=== PATIENT | female | born 1985 | race Caucasian/White ===

== ENCOUNTER 2017-01-10 17:02 | Emergency (ER) | payer BC ==
[~2017-01-10] VITALS: Ht 172.7 cm; Wt 63.5 kg
[2017-01-10] MEDS ORDERED: PROM118S2 PO (17:43)
[2017-01-10] MEDS ORDERED: SULF1TAB24 PO (17:43)
--- NOTE | 2017-01-10 17:46 | PHYS DOC ---
General Chief Complaint: FACE PROBLEM Stated Complaint: FACE PROBLEM Time Seen by MD: 17:07 Source: patient Exam Limitations: no limitations Problems: History of Present Illness Initial Comments Patient is a 31-year-old female who comes to the ED complaining of sinus infection. Patient states that she was treated last week with a Z-Juan M for upper respiratory infection but has not improved. She states that she's had facial pain and pressure worse with forward bending, productive cough with yellow discharge as well as yellow nasal drainage. She states that last night she had multiple episodes of posttussive emesis. She's had no fevers but states she's had body aches and chills, denies chest pain or shortness of breath no abdominal pain or bowel or bladder symptoms. Z-Juan M and nkmv-one-acwwxin medications are not helping, she states she just got off work and struggled to get through it. Her ED vital signs are stable Timing/Duration: last week Severity: moderate Location: nose, throat, facial Prearrival Treatment: over the counter meds, prescription meds Modifying Factors: worse with coughing, improves with rest Associated Symptoms: cough, facial pain/swelling, malaise, nasal congestion/ drainage, sinus infection, sore throat Allergies: Coded Allergies: No Known Drug Allergies (Unverified , 01/10/17) Past Medical History Medical History: no pertinent history Surgical History: noncontributory Social History Smoker: non-smoker Alcohol: none Drugs: none Constitutional: chills, diaphoresis, denies fever, malaise Eyes: denies blindness, denies blurred vision, denies drainage Ears: denies dizziness, denies tinnitus, denies clear discharge Nose: denies clots, congestion, denies epistaxis, denies pain Throat: pain, denies swelling, denies neck stiffness, denies painful swallowing , denies difficulty with fluids Respiratory: cough, denies orthopnea, denies shortness of breath, denies stridor, denies wheezing Cardiovascular: denies chest pain, denies palpitations, denies syncope Gastrointestinal: denies abdominal pain, denies constipation, denies diarrhea, denies nausea, vomiting Musculoskeletal: see HPI Neurological: headache, denies numbness, denies paresthesia, denies weakness Hematologic/Lymphatic: denies blood clots, denies easy bleeding, denies easy bruising Physical Exam General Appearance: WD/WN, mild distress Eyes: bilateral eye normal inspection, bilateral eye PERRL, bilateral eye EOMI Ears: bilateral ear auricle normal Nose: sinus tenderness, other (yellow discharge) Mouth/Throat: other (yellow postnasal drip no pharyngeal swelling or exudate or vesicles airway is patent) Neck: full range of motion, supple, trachea midline Cardiovascular/Respiratory: normal peripheral pulses, normal breath sounds, no respiratory distress 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 Departure Time of Disposition: 17:44 Disposition: 01 HOME, SELF-CARE Diagnosis: Sinusitis, post-tussive emesis Condition: GOOD Patient Instructions: Sinusitis, [id number]-[id number] Additional Instructions: Off work thru Monday, note given. OTC tylenol/ibuprofen/diphenhydramine as needed. Aggressive hydration with gatorade, water. Rx: bactrim ds, promethazine/codeine syrup 120ml Follow up with your doctor in 7-10 days if no improvement. Return to ED with new or changing symptoms. THIAGO ARCE DO Jan 10, 2017 17:46
[2017-01-10 17:50] VITALS: BP 123/82
== END 2017-01-10 17:55 | disposition home or self-care (01) ==
LOC: ER 17:02
DX: J32.9 Chronic sinusitis, unspecified (principal); R11.10 Vomiting, unspecified
CPT/HCPCS: 99283

== ENCOUNTER 2020-07-01 22:39 | Emergency (ER) | payer BC, OTHER ==
[~2020-07-01] VITALS: Ht 167.6 cm; Wt 72.7 kg
[~2020-07-01 22:39] MED LIST: PROM118S5 PO; SULF1TAB24 PO
[2020-07-01 23:07] VITALS: BP 148/91
[2020-07-01] MEDS ORDERED: ORPH-16 PO (23:24)
--- NOTE | 2020-07-01 23:24 | PHYS DOC ---
Past History Past Medical History: No Pertinent History Past Surgical History: , Tonsillectomy, Other Additional Past Surgical Histo: hernia repair Alcohol Use: None Drug Use: None General Adult EDM: Chief Complaint: BACK INJURY HPI: HPI: Patient is a [age] year old [sex] who presents with [] Review of Systems: Review of Systems: Constitutional: Denies fever or chills Eyes: Denies redness or eye pain HENT: Denies nasal congestion or sore throat Respiratory: Denies cough or shortness of breath Cardiovascular: Denies chest pain or palpitations GI: Denies abdominal pain, nausea, or vomiting : Denies dysuria or hematuria Musculoskeletal: Reports back pain; denies neck pain Integument: Denies rash or skin lesions Neurologic: Denies headache, focal weakness or sensory changes; denies loss of bowel or bladder Complete systems were reviewed and found to be within normal limits, except as documented in this note. Allergies: Allergies: Allergies Coded Allergies Type Severity Reaction Last Updated Verified No Known Drug Allergies 01/10/17 No Physical Exam: PE: Constitutional: Well developed, well nourished, uncomfortable, non-toxic appearance HENT: Normocephalic, atraumatic Eyes: Conjunctiva normal, no discharge Neck: Normal range of motion, supple Lungs & Thorax: No respiratory distress, equal chest rise and fall Skin: Warm, dry, no erythema, no rash Back: No midline tenderness, bilateral upper lumbar paraspinal tenderness on palpation as well as upper thoracic paraspinal tenderness no CVA tenderness Extremities: No tenderness, ROM intact, no edema Neurologic: Alert and oriented X 3, no focal deficits noted Psychologic: Affect normal, judgment normal EKG: EKG: [] Radiology/Procedures: Radiology/Procedures: [] Heart Score: C/O Chest Pain: N/A Course & Med Decision Making: Course & Med Decision Making Patient with history of chronic back issues ("3 herniated disks ") presents with HPI and physical exam concerning for possible exacerbation of patient's chronic back issues. Denies loss of bowel or bladder. Denies fall. No midline spinal tenderness appreciated. Symptomatic treatment provided. Patient stable for discharge with outpatient follow-up with PCP/Workmen's Comp. Discussed findings and plan with patient and friend, who acknowledge understanding and agreement. Zev Disclaimer: Zev Disclaimer: This electronic medical record was generated, in whole or in part, using a voice recognition dictation system. Departure Departure: Impression: Primary Impression: Back pain Qualified Codes: M54.9 - Dorsalgia, unspecified Disposition: 01 DC HOME SELF CARE/HOMELESS Condition: STABLE Referrals: PCP,NO (PCP) Patient Instructions: Back Pain, Adult, Qjvw-oo-Bpid, Work-Related Injury-Brief Additional Instructions: Ice to area of discomfort 20 minutes on then leave off for the next 20 minutes. Repeat several times daily for the next few days. May introduce heat after 72 hours. Take yzvj-uso-mgweobh ibuprofen and/or Tylenol for pain or discomfort. Follow-up closely with Workmen's Comp. for further evaluation and treatment. Scripts Orphenadrine Citrate (ORPHENADRINE CITRATE) 100 Mg Tablet.er 1 TAB PO BID PRN for MUSCLE PAIN, #14 TAB 0 Refills Prov: CRISTY BLACKMAN DO 07/01/20 CRISTY BLACKMAN DO Jul 01, 2020 23:24
[2020-07-01] MEDS ORDERED: ORPHENADRINE CITRATE 60 MG/2 ML VIAL. IM ONE (23:45)
[2020-07-01] MEDS ORDERED: IBUPROFEN 600 MG TABLET. PO ONE (23:45)
[2020-07-01] MEDS ORDERED: DEXAMETHASONE 4 MG TABLET PO ONE (23:45)
[2020-07-02] MEDS ORDERED: ONDANSETRON ODT 4 MG TAB.RAPDIS PO ONE
== END 2020-07-01 23:49 | disposition home or self-care (01) ==
LOC: ER 22:39
DX: M54.6 Pain in thoracic spine (principal); M54.5 Low back pain; Z98.890 Other specified postprocedural states
CPT/HCPCS: 96372; 99284; J2360; J8540; Q0162

== ENCOUNTER 2020-10-03 14:00 | Emergency (ER) | payer SELFPAY ==
[~2020-10-03] VITALS: Ht 170.2 cm; Wt 77.3 kg
[~2020-10-03 14:00] MED LIST changes: +ORPH-16 PO
[2020-10-03] MEDS: HYDROcodone/APAP 7.5/325MG 1 TAB TABLET PO ONE (14:30)
--- NOTE | 2020-10-03 14:32 | PHYS DOC ---
Past History Past Medical History: No Pertinent History Past Surgical History: , Tonsillectomy, Other Additional Past Surgical Histo: hernia repair Smoking: Non-smoker Alcohol Use: None Drug Use: None Adult General Chief Complaint Chief Complaint: MECHANICAL FALL HPI HPI Patient is a 35-year-old female who presents via POV with daughter after falling off a horse. Accident occurred approximately 2 hours prior to arrival. States she was on a horse with her child when the horse got spooked and bucked them off. Patient reports falling off landing on outstretched hands and subsequently landing on her right hip. Did not hit her head, no loss of consciousness, no changes in motor or sensory or neurologic control, no saddle anesthesia or bladder or bowel incontinence. Patient reports family member drove in picked her up. She was able to self ambulate but was extremely antalgic getting out of car into the house. She attempted to go about her day taking x1 dose of Tylenol without significant pain relief. She reports trying to shower but ongoing pain especially with weightbearing to right hip prompted her to request transport to our ER for evaluation. Patient is otherwise healthy, no medical issues, no alcohol or illicit drug use Review of Systems Review of Systems Fourteen body systems of review of systems have been reviewed. See HPI for pertinent positives and negative responses, other workman all other systems are negative, non-pertinent or non-contributory Allergies Allergies Allergies Coded Allergies Type Severity Reaction Last Updated Verified No Known Drug Allergies 07/01/20 No Physical Exam Physical Exam TRAUMA ADULT: A: Patient vocalizing, airway intact B: Bilateral breath sounds present C: 2+ carotid, radial and femoral pulses intact bilaterally D: GCS 15 (E4, V5, M6). MAEE E: Patient exposed with no significant trauma and/or obvious bony abnormalities/deformities General: Age-appropriate but appears in moderate distress due to pain wiggling in ER cot Skin: Warm, dry. Normal for ethnicity. HEENT: Atraumatic. PERRLA. Dry mucous membranes. No facial deformity. Neck: Trachea midline. Full range of motion of neck. No midline c-spine TTP. Respiratory: Normal WOB. CTAB w/o w/r/r. No tachypnea. Cardiovascular: Regular rate and rhythm. Normal peripheral perfusion. No edema. Chest: B/l clavicles intact. No TTP. No ecchymosis. No bruising. No deformity. Abdomen: Soft. Non tender. No distension. Bowel sounds present : Deferred Back: No midline T or L-spine TTP. No ecchymosis. Musculoskeletal: Tenderness present to dorsal aspect of left hyperthenar eminence and tenderness with palpation to distal aspect of right radius. Pelvis is stable but exquisitely tender to palpation on the right on anterior and lateral portions of hip. Cap refill less than 3 seconds in all distal extremities Neuro: Alert and oriented x 4. MAEE. Motor and sensory function intact. No saddle anesthesia. Cranial nerves II through XII intact Psych: Anxious affect and mood Current Patient Data Vital Signs Vital Signs Date Time Temp Pulse Resp B/P (MAP) Pulse Ox O2 Delivery O2 Flow Rate FiO2 10/03/20 15:28 98.1 69 24 132/88 100 Vital Signs Date Time Temp Pulse Resp B/P (MAP) Pulse Ox O2 Delivery O2 Flow Rate FiO2 10/03/20 15:28 98.1 69 24 132/88 100 Lab Results Laboratory Tests Test 10/03/20 15:57 White Blood Count 7.0 x10^3/uL Red Blood Count 4.26 x10^6/uL Hemoglobin 12.8 g/dL Hematocrit 37.8 % Mean Corpuscular Volume 89 fL Mean Corpuscular Hemoglobin 30 pg Mean Corpuscular Hemoglobin Concent 34 g/dL Red Cell Distribution Width 12.9 % Platelet Count 147 x10^3/uL Neutrophils (%) (Auto) 81 % Lymphocytes (%) (Auto) 12 % Monocytes (%) (Auto) 7 % Eosinophils (%) (Auto) 0 % Basophils (%) (Auto) 0 % Neutrophils # (Auto) 5.6 x10^3uL Lymphocytes # (Auto) 0.9 x10^3/uL Monocytes # (Auto) 0.5 x10^3/uL Eosinophils # (Auto) 0.0 x10^3/uL Basophils # (Auto) 0.0 x10^3/uL Sodium Level 143 mmol/L Potassium Level 3.4 mmol/L Chloride Level 106 mmol/L Carbon Dioxide Level 26 mmol/L Anion Gap 11 Blood Urea Nitrogen 15 mg/dL Creatinine 1.1 mg/dL Estimated GFR (Cockcroft-Gault) 56.9 BUN/Creatinine Ratio 14 Glucose Level 93 mg/dL Calcium Level 8.6 mg/dL Total Bilirubin 0.4 mg/dL Aspartate Amino Transf (AST/SGOT) 23 U/L Alanine Aminotransferase (ALT/SGPT) 21 U/L Alkaline Phosphatase 70 U/L Total Protein 7.7 g/dL Albumin 4.1 g/dL Albumin/Globulin Ratio 1.1 Current Medications Medications (Trade) Dose Ordered Sig/Donna Route PRN Reason Start Time Stop Time Status Last Admin Dose Admin Acetaminophen/ Hydrocodone Bitart (Lortab 7.5/325) 1 tab 1X ONCE PO 10/03/20 14:30 10/03/20 14:39 DC 10/03/20 14:30 Fentanyl Citrate (Fentanyl 2ml Vial) 75 mcg 1X ONCE IVP 10/03/20 15:45 10/03/20 15:46 DC 10/03/20 15:59 Iohexol (Omnipaque 300 Mg/ml) 75 ml 1X ONCE IV 10/03/20 15:45 10/03/20 15:46 DC 10/03/20 16:31 EKG EKG [] Radiology/Procedures Radiology/Procedures XR HAND_LEFT 3 VIEWS History: Reason: LEFT THUMB PAIN, FOOSH / Spl. Instructions: / History: Technique: 3 views left hand Comparison: None. Findings: No dislocation. No acute fracture. Shortened fourth and fifth metacarpals. Impression: 1. No acute osseous abnormality. 2. Shortened fourth and fifth metacarpals. Differential considerations include metabolic and congenital etiologies. Electronically signed by: Monico Goldstein DO (10/03/2020 3:12 PM) [facility] ////////////////// XR RT WRIST 3VIEWS History: Reason: RT SNUFFBOX PAIN / Spl. Instructions: / History: Technique: 3 views right wrist Comparison: None. Findings: Acute nondisplaced intra-articular distal radial fracture. No dislocation. There is adjacent soft tissue swelling. Impression: 1. Acute nondisplaced right intra-articular distal radius fracture. Electronically signed by: Monico Goldstein DO (10/03/2020 3:14 PM) [facility] ////////////// XR BILATERAL HIP (WITH OR WITHOUT PELVIS) 2 VIEWS_RIGHT History: Reason: FALL OFF HORSE, RIGHT HIP PAIN / Spl. Instructions: / History: Technique: AP view of the pelvis and additional views of the right hip. Comparison: None. Findings: Acute mildly displaced superior and inferior pubic rami fractures. No dislocation of the hips. Possible nondisplaced right sacral alar fracture although not well characterized on the current examination. Impression: 1. Acute mildly displaced right superior and inferior pubic ramus fractures. 2. Possible nondisplaced right sacral alar fracture. Electronically signed by: Monico Goldstein DO (10/03/2020 3:18 PM) [facility] ///////////// Single view chest dated 10/03/2020 3:58 PM: COMPARISON: None Clinical Indication: Pain after fall. Findings: Single upright portable exam of the chest was performed. Heart size and mediast inal contours are within normal limits. Lungs are clear. No consolidation or pleural effusion. No pneumothorax. IMPRESSION: No acute radiographic abnormality. Electronically signed by: Satish Lim MD (10/03/2020 3:59 PM) [id number] /////////////// CT abdomen pelvis with contrast. HISTORY: Right pelvic fractures. CT abdomen pelvis was done using 74 mL of Omnipaque 300 contrast. There is mild atelectasis in the lung bases without other infiltrates. Liver is normal in appearance. There is no calcified gallstone. Spleen is unremarkable. Pancreas and adrenal glands are unremarkable. There is no mass or hydronephrosis in the kidneys. There is scarring and decreased size of the right kidney compared to the left side. There is no small bowel obstruction. Appendix is normal. Ovaries are unremarkable. There is central mass or endometrial thickening in the uterus. Bladder is almost empty but otherwise unremarkable. There is no significant pelvic hematoma or free fluid in the pelvis. There is buckling of the sacral ala on the right side consistent with a nondisplaced sacral fracture. There are superior and inferior right pubic rami fractures. IMPRESSION: 1. Endometrial thickening versus central mass in the uterus. 2. Superior and inferior pubic rami fractures right. 3. Nondisplaced fracture right sacral ala. 4. No acute intra-abdominal injury noted. 5. Scarring and decreased size of the right kidney compared to the left side. Electronically signed by: Chad Trivedi MD (10/03/2020 4:51 PM) [facility] Heart Score C/O Chest Pain: No Risk Factors: Risk Factors: DM, Current or recent (<one month) smoker, HTN, HLP, family history of CAD, obesity. Risk Scores: Risk Factors: DM, Current or recent (<one month) smoker, HTN, HLP, family history of CAD, obesity. Course & Med Decision Making Course & Med Decision Making ABCs unremarkable. I disclosed entirety of ER findings and discussed most likely diagnosis of nondisplaced right radial fracture, x2 right sided nondisplaced pubic rami fractures and nondisplaced right sacral ala fracture. I contacted orthopedic services at [facility], no indication for any emergent or surgical intervention. With that said, there is concern about patient's ability to be discharged home and care for family and self given current condition. I recommended patient be transferred to [facility] for pain control and further inpatient evaluation by orthopedic services and most importantly physical therapy to help assist with current deficits prior to departure home. Patient deferred. at bedside, states they want to try going home and taking care of self there and attempt to avoid hospital admission. I recommended against this but they were adamant about going home. As such, strict return precautions were discussed. I provided patient with crutches and information on where she can get a wheelchair and other DME equipment in the area Dragon Disclaimer Dragon Disclaimer This electronic medical record was generated, in whole or in part, using a voice recognition dictation system. Departure Departure: Impression: Primary Impression: Closed right radial fracture Additional Impression: Closed fracture of pubic ramus Disposition: 01 HOME / SELF CARE / HOMELESS Condition: STABLE Referrals: PCP,NO (PCP) Patient Instructions: Pelvic Fracture, Simple, Adult, Radius Fracture with Rehab-Sports[facility] Additional Instructions: As discussed prior to ER departure, your vital signs, physical exam and comprehensive ER work-up was nonconcerning for any emergent or surgical issues. With that said, pain control and mobility on discharge home were primary areas of concern. I recommended you be transferred for hospital admission and physical therapy evaluation given your injuries and inability to utilize crutches properly due to distal radial fracture of right wrist. Nonetheless, you wanted to go home. This is okay because your injuries were nonoperative and stable in nature. With that said, continued pain control, weightbearing as tolerated, and close outpatient follow-up is paramount. I have attached information regarding local primary care physicians in addition to orthopedic surgeon that I consulted regarding your injuries today. You should call them next scheduled business day to review ER visit and need for close outpatient follow-up for repeat evaluation. If any concerning signs or symptoms present prior to outpatient follow-up please do not hesitate to come back for repeat evaluation. It was a pleasure to take care of you and I wish you the best going forward Scripts Oxycodone HCl/Acetaminophen (Percocet 5-325 mg Tablet) 1 Each Tablet 1 TAB PO PRN TID PRN for SEVERE PAIN 7-10 MDD 3 Tablet(s) for 5 Days, #15 TAB 0 Refills Prov: SOPHIE MORGAN DO 10/03/20 Problem Qualifiers SOPHIE MORGAN DO Oct 03, 2020 14:32
--- NOTE | 2020-10-03 15:14 | RAD ---
XR HAND_LEFT 3 VIEWS History: Reason: LEFT THUMB PAIN, FOOSH / Spl. Instructions: / History: Technique: 3 views left hand Comparison: None. Findings: No dislocation. No acute fracture. Shortened fourth and fifth metacarpals. Impression: 1. No acute osseous abnormality. 2. Shortened fourth and fifth metacarpals. Differential considerations include metabolic and congeni aditi etiologies. Electronically signed by: Monico Goldstein DO (10/03/2020 3:12 PM) [facility]
--- NOTE | 2020-10-03 15:16 | RAD ---
XR RT WRIST 3VIEWS History: Reason: RT SNUFFBOX PAIN / Spl. Instructions: / History: Technique: 3 views right wrist Comparison: None. Findings: Acute nondisplaced intra-articular distal radial fracture. No dislocation. There is adjacent soft tis jose swelling. Impression: 1. Acute nondisplaced right intra-articular distal radius fracture. Electronically signed by: Monico Goldstein DO (10/03/2020 3:14 PM) [facility]
--- NOTE | 2020-10-03 15:20 | RAD ---
XR BILATERAL HIP (WITH OR WITHOUT PELVIS) 2 VIEWS_RIGHT History: Reason: FALL OFF HORSE, RIGHT HIP PAIN / Spl. Instructions: / History: Technique: AP view of the pelvis and additional views of the right hip. Comparison: None. Findings: Acute mildly displaced superior and inferior pubic rami fractures. No dislocation of the hips. Possib le nondisplaced right sacral alar fracture although not well characterized on the current examination . Impression: 1. Acute mildly displaced right superior and inferior pubic ramus fractures. 2. Possible nondisplaced right sacral alar fracture. Electronically signed by: Monico Goldstein DO (10/03/2020 3:18 PM) [facility]
[2020-10-03 15:28] VITALS: BP 132/88
--- NOTE | 2020-10-03 16:01 | RAD ---
Single view chest dated 10/03/2020 3:58 PM: COMPARISON: None Clinical Indication: Pain after fall. Findings: Single upright portable exam of the chest was performed. Heart size and mediastinal contours are with in normal limits. Lungs are clear. No consolidation or pleural effusion. No pneumothorax. IMPRESSION: No acute radiographic abnormality. Electronically signed by: Satish Lim MD (10/03/2020 3:59 PM) [id number]
[2020-10-03 16:19] LABS: BASO % 0 % (0-3); EOS % 0 % (0-3); HEMATOCRIT 37.8 % (36.0-47.0); HEMOGLOBIN 12.8 g/dL (12.0-15.5); LYMPH # 0.9 x10^3/uL (1.0-4.8); LYMPH % 12 % (24-48); MEAN CORPUSCULAR HEMOGLOBIN 30 pg (25-35); MEAN CORPUSCULAR HGB CONC 34 g/dL (31-37); MEAN CORPUSCULAR VOLUME 89 fL (79-100); MONO # 0.5 x10^3/uL (0.0-1.1); MONO % 7 % (0-9); NEUT # 5.6 x10^3uL (1.8-7.7); NEUT % 81 % (31-73); PLATELET COUNT 147 x10^3/uL (140-400); RED BLOOD COUNT 4.26 x10^6/uL (3.50-5.40); RED CELL DISTRIBUTION WIDTH 12.9 % (11.5-14.5)
[2020-10-03] MEDS: IOHEXOL 300 MG/ML 75 ML VIAL. IV ONE (16:31)
[2020-10-03 16:33] LABS: CALCIUM 8.6 mg/dL (8.5-10.1); CREATININE 1.1 mg/dL (0.6-1.0); GFR 56.9; POTASSIUM 3.4 mmol/L (3.5-5.1)
[2020-10-03 16:39] LABS: ALBUMIN 4.1 g/dL (3.4-5.0); ALBUMIN/GLOBULIN RATIO 1.1 (1.0-1.7); TOTAL BILIRUBIN 0.4 mg/dL (0.2-1.0); TOTAL PROTEIN 7.7 g/dL (6.4-8.2)
--- NOTE | 2020-10-03 16:54 | RAD ---
CT abdomen pelvis with contrast. HISTORY: Right pelvic fractures. CT abdomen pelvis was done using 74 mL of Omnipaque 300 contrast. There is mild atelectasis in the allie ng bases without other infiltrates. Liver is normal in appearance. There is no calcified gallstone. S pleen is unremarkable. Pancreas and adrenal glands are unremarkable. There is no mass or hydronephros is in the kidneys. There is scarring and decreased size of the right kidney compared to the left side . There is no small bowel obstruction. Appendix is normal. Ovaries are unremarkable. There is central mass or endometrial thickening in the uterus. Bladder is almost empty but otherwise unremarkable. Th ere is no significant pelvic hematoma or free fluid in the pelvis. There is buckling of the sacral al a on the right side consistent with a nondisplaced sacral fracture. There are superior and inferior r ight pubic rami fractures. IMPRESSION: 1. Endometrial thickening versus central mass in the uterus. 2. Superior and inferior pubic rami fractures right. 3. Nondisplaced fracture right sacral ala. 4. No acute intra-abdominal injury noted. 5. Scarring and decreased size of the right kidney compared to the left side. PQRS Compliance Statement: One or more of the following individualized dose reduction techniques were utilized for this examinat ion: 1. Automated exposure control 2. Adjustment of the mA and/or kV according to patient size 3. Use of iterative reconstruction technique Electronically signed by: Chad Trivedi MD (10/03/2020 4:51 PM) [facility]
[2020-10-03] MEDS ORDERED: OXYC-325 PO (17:30)
== END 2020-10-03 17:54 | disposition home or self-care (01) ==
LOC: ER 14:00
DX: S52.571A Other intraarticular fracture of lower end of right radius, initial encounter for closed fracture (principal); S32.501A Unspecified fracture of right pubis, initial encounter for closed fracture; W18.09XA Striking against other object with subsequent fall, initial encounter; Y93.89 Activity, other specified; Y92.89 Other specified places as the place of occurrence of the external cause; Y99.8 Other external cause status
CPT/HCPCS: 36415; 71045; 73110; 73130; 73502; 74177; 80053; 85025; 96374; 99285; J3010; Q9967

== ENCOUNTER → 2020-11-27 | Outpatient (CLI) | payer OTHER ==
[~2020-11-27] MED LIST changes: +OXYC-325 PO
--- NOTE | 2020-11-27 08:39 | RAD ---
EXAM: Pelvic sonogram. HISTORY: Enlarged uterus. TECHNIQUE: Sonographic imaging of the pelvis was performed. COMPARISON: CT dated 10/03/2020. FINDINGS: The uterus measures 11.8 x 6.6 x 4.8 cm. The endometrial stripe measures 6 mm in thickness. The uterus is heterogeneous and contains a 3.8 cm fibroid within the posterior uterine fundus. The o varies are normal in size and demonstrate normal blood flow. There are small ovarian antral follicles . There is no pelvic free fluid. IMPRESSION: 1. Mildly enlarged and diffusely heterogeneous uterus containing a 3.8 cm fibroid. 2. Otherwise, unremarkable pelvic sonogram. Electronically signed by: Karin Lange MD (11/27/2020 8:36 AM) [id number]
--- NOTE | 2020-11-27 08:40 | RAD ---
EXAM: Gannon scale and color Doppler renal artery sonogram. HISTORY: Renal renal atrophy. TECHNIQUE: Gannon scale and color Doppler sonographic imaging of the kidneys and renal arteries with sp ectral analysis was performed. COMPARISON: CT dated 10/03/2020. FINDINGS: The right kidney measures 8.7 cm hadp-sp-gyqh on the left kidney measures 10.5 cm pole-to-p ole. No solid or cystic renal lesion is seen. There is no hydronephrosis. The prevoid bladder volume is 165 cc. The ureteral jets are both seen. There are normal peak systolic velocities within the bila teral renal arteries and normal renal artery territory velocity ratios. The renal veins and inferior vena cava are patent. There is a normal peak systolic velocity within the abdominal aorta. IMPRESSION: 1. Right renal atrophy. 2. No Doppler evidence of greater than 60 percent stenosis involving the renal arteries. Electronically signed by: Karin Lange MD (11/27/2020 8:37 AM) [id number]
== END ==
LOC: US 07:54
PROVIDERS: ATTEND Family Medicine
DX: N85.2 Hypertrophy of uterus (principal); N26.1 Atrophy of kidney (terminal); R07.89 Other chest pain
CPT/HCPCS: 76770; 76856

== ENCOUNTER → 2020-12-11 | Outpatient (CLI) | payer OTHER ==
--- NOTE | 2020-12-11 18:16 | RAD ---
EXAM: XR RT WRIST 3VIEWS, XR PELVIS 1-2V 12/11/2020 11:24 AM CLINICAL INDICATION: Pelvic fracture follow-up. Right wrist fracture follow-up. COMPARISON: Right hip radiograph and right wrist radiograph 11/12/2020 TECHNIQUE: AP view the pelvis. PA, oblique, and lateral views of the right wrist. FINDINGS: Pelvis: There are healing mildly displaced right superior and inferior pubic rami fractures, unchange d in alignment. Fracture lines are less discrete and there is mild callus formation. The known nondis placed right sacral alar fracture is not well visualized by radiograph. No new fracture or malalignme nt. The hips, pubic symphysis, and sacroiliac joints are maintained. Right wrist: The nondisplaced radial styloid fracture is unchanged in alignment. The fracture line is more obscured. Alignment is normal. Joint spaces are maintained. Soft tissues normal.. IMPRESSION: 1. Healing right superior and inferior pubic rami fractures. 2. The known nondisplaced right sacral ala fracture is not well visualized by radiograph. 3. Healing nondisplaced radial styloid fracture. Electronically signed by: Gabby Eubanks MD (12/11/2020 6:13 PM) [id number]
== END ==
LOC: RAD 11:20
PROVIDERS: ATTEND Physician Assistant
DX: S32.591D Other specified fracture of right pubis, subsequent encounter for fracture with routine healing (principal); S52.514D Nondisplaced fracture of right radial styloid process, subsequent encounter for closed fracture with routine healing; X58.XXXD Exposure to other specified factors, subsequent encounter
CPT/HCPCS: 72170; 73110

== ENCOUNTER → 2021-01-25 | Outpatient (CLI) | payer OTHER ==
--- NOTE | 2021-01-25 15:03 | RAD ---
EXAM: Pelvis, single view; right wrist, 3 views. HISTORY: Fracture follow-up. COMPARISON: 12/11/2020 FINDINGS: Right wrist: 3 views of the right wrist are obtained. The distal radial metaphyseal fracture line is less distinct compared to the prior exam, consistent with partial interval healing. No new fracture i s seen. Pelvis: A frontal view of the pelvis is obtained. There has been no change in mildly displaced right superior and inferior pubic rami fractures. The previously reported right sacral fracture is not well seen radiographically. IMPRESSION: 1. No significant change in mildly displaced right pubic rami fractures. Note is made that a previous ly described right sacral fracture is not well seen radiographically. 2. Slight interval healing of a distal radial metaphyseal fracture. Electronically signed by: Karin Lange MD (01/25/2021 3:00 PM) [id number]
== END ==
LOC: RAD 14:32
PROVIDERS: ATTEND Physician Assistant
DX: S32.591D Other specified fracture of right pubis, subsequent encounter for fracture with routine healing (principal); S52.391D Other fracture of shaft of radius, right arm, subsequent encounter for closed fracture with routine healing; X58.XXXD Exposure to other specified factors, subsequent encounter
CPT/HCPCS: 72170; 73110

== ENCOUNTER → 2021-03-29 | Outpatient (CLI) | payer OTHER ==
--- NOTE | 2021-03-29 13:12 | RAD ---
EXAM: Right wrist, 3 views. HISTORY: Fracture follow-up. COMPARISON: 01/25/2021 FINDINGS: 3 views of the right wrist are obtained. The previously demonstrated distal radial metaphys eal fracture line is faintly seen. There is no new fracture. There is no foreign body. IMPRESSION: Near-complete healing of a distal radial metaphyseal fracture. Electronically signed by: Karin Lange MD (03/29/2021 1:09 PM) [id number]
--- NOTE | 2021-03-29 17:15 | RAD ---
EXAM: PELVIS 1 VIEW. HISTORY: Pelvic fractures. COMPARISON: 01/25/2021. FINDINGS: The fractures of the right superior and inferior pubic rami demonstrate solid bridging call us consistent with healing. Alignment is unchanged and near-anatomic. The joint spaces and alignment of both hips are maintained. IMPRESSION: 1. Healing fractures of the right superior and inferior pubic rami. Electronically signed by: Kar Acevedo MD (03/29/2021 5:13 PM) [id number]
== END ==
LOC: RAD 12:43
PROVIDERS: ATTEND Physician Assistant
DX: S52.301D Unspecified fracture of shaft of right radius, subsequent encounter for closed fracture with routine healing (principal); S32.591K Other specified fracture of right pubis, subsequent encounter for fracture with nonunion; R10.2 Pelvic and perineal pain; X58.XXXD Exposure to other specified factors, subsequent encounter
CPT/HCPCS: 72170; 73110

== ENCOUNTER → 2021-06-21 | Outpatient (CLI) | payer OTHER ==
--- NOTE | 2021-06-21 16:33 | RAD ---
XR HAND_RIGHT 3 VIEWS History: Reason: NONDISPLACED FX OF STYLOID PROCESS / Spl. Instructions: / History: Technique: March 29, 2021 Comparison: March 29, 2021 Findings: Unchanged alignment of the wrist. Essentially healed right distal radius fracture. Impression: 1. Essentially healed right distal radius fracture. Electronically signed by: Monico Goldstein DO (06/21/2021 4:31 PM) [id number]
--- NOTE | 2021-06-21 16:34 | RAD ---
XR PELVIS 1-2V History: Reason: CL FX RT RAMUS / Spl. Instructions: / History: Technique: AP view the pelvis. Comparison: December 11, 2020 and March 29, 2021 Findings: Healed right superior and inferior pubic rami fractures. No dislocation. No acute fracture. Impression: 1. Healed right superior and inferior pubic rami fractures. Electronically signed by: Monico Goldstein DO (06/21/2021 4:32 PM) [id number]
== END ==
LOC: RAD 13:18
PROVIDERS: ATTEND Physician Assistant
DX: S52.541D Smith's fracture of right radius, subsequent encounter for closed fracture with routine healing (principal); X58.XXXD Exposure to other specified factors, subsequent encounter
CPT/HCPCS: 72170; 73130